=== PATIENT | male | born 1940 | race Hispanic/Latino ===

== ENCOUNTER 2018-07-24 07:23 | Day surgery (SDC) | payer MEDICARE ==
[2018-07-22 12:13] LABS: BASOPHILS % (AUTO) 0.5 % (0.0-5.0); EOSINOPHILS % (AUTO) 4.8 % (0.0-8.0); HEMATOCRIT 37.5 % (42-54); LYMPHOCYTES % (AUTO) 29.2 % (21.0-51.0); MEAN CORPUSCULAR HEMOGLOBIN 31.1 pg (27.0-33.0); MEAN CORPUSCULAR HGB CONC 32.9 g/dL (32.0-36.0); MEAN CORPUSCULAR VOLUME 94.5 fL (79-99); MONOCYTES % (AUTO) 8.6 % (3.0-13.0); NEUTROPHILS % (AUTO) 56.9 % (40.0-77.0); PLATELET COUNT (AUTO) 221 K/uL (130-400); RED BLOOD CELL COUNT(AUTO) 3.97 MIL/uL (4.50-6.20); RED CELL DISTRIBUTION WIDTH 14.4 % (11.0-15.5); WHITE BLOOD COUNT (AUTO) 8.9 K/uL (4.8-10.8)
[2018-07-22 12:17] LABS: APPEARANCE,URINE Clear (CLEAR); BILIRUBIN,URINE Negative (NEGATIVE); COLOR,URINE Yellow (YELLOW); GLUCOSE, URINE (UA) Negative (NEGATIVE); KETONES,URINE Negative (NEGATIVE); LEUKOCYTE ESTERASE ,URINE Moderate (NEGATIVE); NITRATE,URINE Negative (NEGATIVE); OCCULT BLOOD,URINE Negative (NEGATIVE); PROTEIN,URINE Negative (NEGATIVE)
[2018-07-22 12:18] LABS: CREATININE 1.4 mg/dL (0.5-1.5); POTASSIUM 3.6 mmol/L (3.5-5.1)
[2018-07-22 12:25] LABS: INR 1.03 (0.85-1.15); PARTIAL THROMBOPLASTIN TIME 26.1 SEC (26.3-35.5); PROTHROMBIN TIME 10.8 SEC (9.6-11.6)
[2018-07-22 12:37] VITALS: BP 140/57
[2018-07-22 12:43] LABS: BACTERIA,URINE Rare /HPF (None Seen); RBC,URINE 0-1 /HPF (0-1); SQUAMOUS EPITHELIAL CELL,UR Rare /HPF (0-2)
--- NOTE | 2018-07-23 10:51 | NUR ---
ABNORMAL LABS NOTIFIED DOROTHY PENG OF PT'S CREATININE 1.4, BUN 29, URINE LEUKEST MODERATE, NEGATIVE NITRATES. ORDERS TO GIVE NS AT 100 ML/HR UNTIL PT GOES TO PROCEDURE.
[~2018-07-24] VITALS: Ht 165.1 cm; Wt 76.4 kg
[2018-07-24] VITALS (10 sets, daily range): BP systolic 131–150; BP diastolic 54–65
[~2018-07-24 07:23] MED LIST: ASPI-555 PO; ATOR20TA PO; DOXA4TAB3 PO; FOLI0.8T41 PO; INSLAN SQ; INSU100I15 SQ; NIAC500T76 PO; SITA100T12 PO; SODI325T PO; SODIUM CHLORIDE 0.9% 1000ML 1,000 ML IV SCH; TELM80TA2 PO; VITAD400 PO; [UNRECOGNIZED DRUG - CODE] PO
[2018-07-24] MEDS ORDERED: NITROGLYCERIN 5 MG/ML 10 ML VIAL IV ONE (09:55)
[2018-07-24] MEDS ORDERED: IOHEXOL-350 50ML VIAL IV ONE (09:55)
[2018-07-24] MEDS ORDERED: IOHEXOL 350 MG/ML 100ML INFUS..BTL IV ONE (09:55)
[2018-07-24] MEDS ORDERED: SODIUM BICARB 50MEQ 50ML VIAL ONE (09:55)
[2018-07-24] MEDS ORDERED: LIDOCAINE HCL 2% 20ML ONE (09:56)
[2018-07-24] MEDS ORDERED: MIDAZOLAM HCL 1 MG/ML 2ML VIAL ONE (10:13)
[2018-07-24] MEDS ORDERED: MEPERIDINE-PF 25 MG/ML SYG ONE (10:13)
[2018-07-24] MEDS ORDERED: GABA-529 PO (10:23)
[2018-07-24] MEDS ORDERED: GLIP10TA19 PO (10:23)
[2018-07-24] MEDS ORDERED: SODIUM CHLORIDE 0.9% 1000ML 1,000 ML IV SCH (10:52)
--- NOTE | 2018-07-24 13:12 | NUR ---
discharged pt gave instructions to son/pt no concerns voiced. Appt with doctor Nassar was discussed.
[2018-07-27] MEDS ORDERED: FOLI0.8T22 PO (13:34)
[2018-07-27] MEDS ORDERED: FISH1CAP49 PO (13:34)
[2018-07-27] MEDS ORDERED: NIFE90TA4 PO (13:36)
[2018-07-27] MEDS ORDERED: ATEN1TAB4 PO (13:36)
[2018-07-27] MEDS ORDERED: [UNRECOGNIZED DRUG - OTHER] PO (13:36)
== END 2018-07-24 13:12 | disposition home or self-care (01) ==
LOC: DAH 07:23
PROVIDERS: ATTEND Internal Medicine Cardiovascular Disease
DX: I25.118 Atherosclerotic heart disease of native coronary artery with other forms of angina pectoris (principal); I82.90 Acute embolism and thrombosis of unspecified vein; I26.99 Other pulmonary embolism without acute cor pulmonale; Z79.01 Long term (current) use of anticoagulants; I21.3 ST elevation (STEMI) myocardial infarction of unspecified site; I10 Essential (primary) hypertension; E78.5 Hyperlipidemia, unspecified; Z86.73 Personal history of transient ischemic attack (TIA), and cerebral infarction without residual deficits; Z79.899 Other long term (current) drug therapy; Z79.4 Long term (current) use of insulin; Z79.84 Long term (current) use of oral hypoglycemic drugs
CPT/HCPCS: 36415; 71045; 80048; 81001; 82948 ×2; 85025; 85610; 85730; 93005; 93458; A4606; C1760; C1894; J1644; J2175; J2250; J3490 ×3; Q9965; Q9967 ×2; 99156; 99157

== ENCOUNTER → 2018-10-29 | Outpatient (CLI) | payer MEDICARE ==
[~2018-10-29] MED LIST changes: +ATEN1TAB4 PO; +FISH1CAP49 PO; +FOLI0.8T22 PO; -FOLI0.8T41 PO; +GABA-529 PO; +IOHEXOL-350 50ML VIAL IV ONE; -NIAC500T76 PO; +NIFE90TA4 PO; -SODIUM CHLORIDE 0.9% 1000ML 1,000 ML IV SCH; -[UNRECOGNIZED DRUG - CODE] PO; +[UNRECOGNIZED DRUG - OTHER] PO
== END | disposition home or self-care (01) ==
LOC: RAH 07:35
PROVIDERS: ATTEND Internal Medicine Cardiovascular Disease
DX: I65.23 Occlusion and stenosis of bilateral carotid arteries (principal); I70.90 Unspecified atherosclerosis
CPT/HCPCS: 70496; 70498; Q9967

== ENCOUNTER → 2018-12-07 | Outpatient (CLI) | payer MEDICARE ==
[~2018-12-07] MED LIST changes: -IOHEXOL-350 50ML VIAL IV ONE
== END | disposition home or self-care (01) ==
LOC: SHCH 08:45
PROVIDERS: ATTEND Internal Medicine Cardiovascular Disease
DX: I70.293 Other atherosclerosis of native arteries of extremities, bilateral legs (principal)
CPT/HCPCS: 93925

== ENCOUNTER 2018-12-28 05:44 | Day surgery (SDC) | payer MEDICARE ==
[2018-12-25 09:55] VITALS: BP 110/64
[2018-12-25 10:41] LABS: APPEARANCE,URINE CLEAR (CLEAR); BILIRUBIN,URINE NEGATIVE (NEGATIVE); COLOR,URINE YELLOW (YELLOW); GLUCOSE, URINE (UA) 100 mg/dL (NEGATIVE); KETONES,URINE NEGATIVE (NEGATIVE); LEUKOCYTE ESTERASE ,URINE MODERATE (NEGATIVE); NITRATE,URINE NEGATIVE (NEGATIVE); OCCULT BLOOD,URINE SMALL (NEGATIVE); PH,URINE 5.5 (5.0-8.0); PROTEIN,URINE TRACE mg/dL (NEGATIVE); UROBILINOGEN,URINE 0.2 mg/dL (0.2-1.0)
[2018-12-25 10:42] LABS: BASOPHILS % (AUTO) 0.8 % (0.0-5.0); EOSINOPHILS % (AUTO) 5.3 % (0.0-8.0); HEMATOCRIT 35.2 % (42-54); LYMPHOCYTES % (AUTO) 23.1 % (21.0-51.0); MEAN CORPUSCULAR HEMOGLOBIN 28.3 pg (27.0-33.0); MEAN CORPUSCULAR HGB CONC 32.7 g/dL (32.0-36.0); MEAN CORPUSCULAR VOLUME 86.6 fL (79-99); MONOCYTES % (AUTO) 6.5 % (3.0-13.0); NEUTROPHILS % (AUTO) 64.3 % (40.0-77.0); PLATELET COUNT (AUTO) 208 K/uL (130-400); RED BLOOD CELL COUNT(AUTO) 4.06 MIL/uL (4.50-6.20); RED CELL DISTRIBUTION WIDTH 19.7 % (11.0-15.5); WHITE BLOOD COUNT (AUTO) 8.2 K/uL (4.8-10.8)
[2018-12-25 10:48] LABS: CREATININE 1.3 mg/dL (0.5-1.5); POTASSIUM 4.1 mmol/L (3.5-5.1)
[2018-12-25 10:51] LABS: INR 1.04 (0.85-1.15); PARTIAL THROMBOPLASTIN TIME 28.5 SEC (26.3-35.5); PROTHROMBIN TIME 10.9 SEC (9.6-11.6)
[2018-12-25 10:57] LABS: BACTERIA,URINE Few /HPF (None Seen); RBC,URINE 0-1 /HPF (0-1); SQUAMOUS EPITHELIAL CELL,UR 0-2 /HPF (0-2)
--- NOTE | 2018-12-25 16:30 | NUR ---
LABS INFORMED DOROTHY BELTRE OF ABNORMAL BUN/CREA/UA. NO ORDERS RECEIVED. PROCEED WITH PLANNED PROCEDURE.
[2018-12-28] VITALS (9 sets, daily range): BP systolic 132–164; BP diastolic 51–80
[~2018-12-28] VITALS: Ht 167.6 cm; Wt 75.6 kg
[~2018-12-28 05:44] MED LIST changes: +APIX2.5T PO; -ATEN1TAB4 PO; -FISH1CAP49 PO; +FURO20TA4 PO; +MAGN400T25 PO; +METO-408 PO; -NIFE90TA4 PO; -SODI325T PO; -VITAD400 PO; -[UNRECOGNIZED DRUG - OTHER] PO
[2018-12-28] MEDS ORDERED: SODIUM CHLORIDE 0.9% 1000ML 1,000 ML IV ONE (07:38)
[2018-12-28] MEDS ORDERED: NITROGLYCERIN 5 MG/ML 10 ML VIAL IV ONE (08:25)
[2018-12-28] MEDS ORDERED: HEPARIN SODIUM 1000UNIT/ML 10ML VIAL ONE (08:25)
[2018-12-28] MEDS ORDERED: SODIUM BICARB 50MEQ 50ML VIAL ONE (08:25)
[2018-12-28] MEDS ORDERED: IODIXANOL 320 MG/ML 100 ML VIAL ONE (08:25)
[2018-12-28] MEDS ORDERED: LIDOCAINE HCL 2% 20ML ONE (08:26)
--- NOTE | 2018-12-28 08:35 | NUR ---
PROCEDURE PT TAKEN TO CATH FOR SCHEDULED PROCEDURE . FAMILY AT BEDSIDE
[2018-12-28] MEDS ORDERED: HYDRALAZINE HCL 20 MG/ML VIAL ONE (09:10)
[2018-12-28] MEDS ORDERED: SODIUM CHLORIDE 0.9% 1000ML 1,000 ML IV SCH (09:29)
[2018-12-28] MEDS ORDERED: GLUCAGON 1MG KIT 1 MG ML IM PRN (09:30)
[2018-12-28] MEDS ORDERED: DEXTROSE 50%-WATER 50 ML DISP.SYRIN IV PRN (09:30)
--- NOTE | 2018-12-28 09:57 | NUR ---
post received pt from manufacturing laborer, s/p carotid angiogram, right groin dressing dry and intact, see post cath assessment, pt awake and alert , denies any pain or discomforts. plan of care discuss with patient /son. instructed to keep bedrest for 4 hrs. pt /son verbalized understanding.
[2018-12-28] MEDS ORDERED: INSULIN HUMULIN R 100 UNIT/ML 3ML SQ SCH (11:30)
--- NOTE | 2018-12-28 13:40 | NUR ---
dc dc instructions given to pts son , instructed to resume eliquis on 12/29/18, instructed to f/u with dr. brandy sepulveda, piv removed site asymptomatic, catheter intact, dressing to right groin dry and intact. see post cath assessment.
--- NOTE | 2018-12-28 13:45 | NUR ---
dc pt discharged with son via wc, no distress noted. denied any pain or discomforts.
== END 2018-12-28 13:45 | disposition home or self-care (01) ==
LOC: DAH 05:44
PROVIDERS: ATTEND Internal Medicine Cardiovascular Disease
DX: I65.23 Occlusion and stenosis of bilateral carotid arteries (principal); I25.10 Atherosclerotic heart disease of native coronary artery without angina pectoris; I10 Essential (primary) hypertension; E78.00 Pure hypercholesterolemia, unspecified; E11.9 Type 2 diabetes mellitus without complications; Z86.73 Personal history of transient ischemic attack (TIA), and cerebral infarction without residual deficits; Z95.5 Presence of coronary angioplasty implant and graft; Z79.01 Long term (current) use of anticoagulants; Z79.82 Long term (current) use of aspirin; Z79.4 Long term (current) use of insulin; Z79.899 Other long term (current) drug therapy; Z83.3 Family history of diabetes mellitus; Z82.49 Family history of ischemic heart disease and other diseases of the circulatory system
CPT/HCPCS: 36223; 36225; 36415; 71045; 80048; 81001; 82948 ×2; 85025; 85610; 85730; 93005; A4606; C1760; C1894; J0360; J1644; J3490 ×3; J7030; Q9967

== ENCOUNTER → 2019-06-21 | Outpatient (CLI) | payer MEDICARE | END | disposition home or self-care (01) | LOC: SHCH 10:52 | PROVIDERS: ATTEND Internal Medicine Cardiovascular Disease | DX: I65.23 Occlusion and stenosis of bilateral carotid arteries (principal) | CPT/HCPCS: 93880 ==

== ENCOUNTER 2019-08-30 07:34 | Inpatient (IN) | payer MEDICARE ==
[~2019-08-30] VITALS: Ht 165.1 cm; Wt 76.0 kg
[2019-08-30] MEDS ORDERED: ASPIRIN 325 MG TABLET ONE (07:44)
[2019-08-30 07:50] LABS: BASOPHILS % (AUTO) 0.6 % (0.0-5.0); EOSINOPHILS % (AUTO) 3.1 % (0.0-8.0); HEMATOCRIT 30.6 % (42-54); LYMPHOCYTES % (AUTO) 22.1 % (21.0-51.0); MEAN CORPUSCULAR HEMOGLOBIN 29.1 pg (27.0-33.0); MEAN CORPUSCULAR VOLUME 90.8 fL (79-99); MONOCYTES % (AUTO) 7.3 % (3.0-13.0); NEUTROPHILS % (AUTO) 66.5 % (40.0-77.0); PLATELET COUNT (AUTO) 197 K/uL (130-400); RED BLOOD CELL COUNT(AUTO) 3.37 MIL/uL (4.50-6.20); RED CELL DISTRIBUTION WIDTH 14.8 % (11.0-15.5); WHITE BLOOD COUNT (AUTO) 9.8 K/uL (4.8-10.8)
[2019-08-30 08:03] LABS: CREATININE 1.6 mg/dL (0.5-1.5)
[2019-08-30 08:07] LABS: ALBUMIN 3.2 g/dL (3.5-5.0); BILIRUBIN,TOTAL 0.7 mg/dL (0.2-1.0); TOTAL PROTEIN, SERUM 7.5 g/dL (6.0-8.3)
[2019-08-30 08:26] LABS: INR 1.2 (0.85-1.15); PARTIAL THROMBOPLASTIN TIME 29.7 SEC (26.3-35.5); PROTHROMBIN TIME 12.9 SEC (9.6-11.6)
[2019-08-30 08:29] LABS: B-TYPE NATRIURETIC PEPTIDE 723 pg/mL (0-100)
[2019-08-30] MEDS ORDERED: CEFTRIAXONE SODIUM 2 GM VIAL ONE (09:57)
[2019-08-30] MEDS ORDERED: SODIUM CHLORIDE 0.9% 100 ML IV ONE (09:57)
[2019-08-30] MEDS ORDERED: FUROSEMIDE 10 MG/ML 4ML VIAL ONE (10:01)
[2019-08-30 10:57] LABS: ABG BASE EXCESS -3.5 mmol/L (-2.0-3.0); ABG HCO3 20.9 mmol/L (21.0-28.0); ABG OXYGEN SATURATION 89.7 % (95.0-99.0); ABG PCO2 36 mmHg (35-48)
[2019-08-30] MEDS ORDERED: ONDANSETRON HCL 4 MG/2 ML VIAL IV PRN (13:15)
[2019-08-30] MEDS ORDERED: ACETAMINOPHEN 325 MG TAB PO PRN ×2 (13:15)
[2019-08-30 14:54] LABS: HEMOGLOBIN A1C 9.1 % (4.0-6.0)
[2019-08-30] MEDS ORDERED: METOPROLOL TARTRATE 25 MG TAB ONE (20:43)
[2019-08-30] MEDS ORDERED: APIXABAN 2.5 MG TABLET PO ONE (20:43)
[2019-08-30] MEDS: METOPROLOL TARTRATE 25 MG TAB PO SCH (21:00)
[2019-08-30] MEDS ORDERED: SODIUM CHLORIDE 3% FOR INHALATION 4 ML/AMP VIAL.NEB IH ONE (22:01)
[2019-08-30] MEDS: APIXABAN 2.5 MG TABLET PO SCH (22:20)
[2019-08-30 22:22] VITALS: BP 164/77
[2019-08-30] MEDS: FUROSEMIDE 10 MG/ML 2ML VIAL IV SCH (22:33)
[2019-08-30 23:25] VITALS: BP 146/59
[2019-08-31 03:39] VITALS: BP 153/61
[2019-08-31 04:31] LABS: BASOPHILS % (AUTO) 0.7 % (0.0-5.0); EOSINOPHILS % (AUTO) 3.1 % (0.0-8.0); HEMATOCRIT 29.3 % (42-54); LYMPHOCYTES % (AUTO) 16.5 % (21.0-51.0); MEAN CORPUSCULAR HGB CONC 32.8 g/dL (32.0-36.0); MEAN CORPUSCULAR VOLUME 88.5 fL (79-99); MONOCYTES % (AUTO) 8.1 % (3.0-13.0); NEUTROPHILS % (AUTO) 71.2 % (40.0-77.0); PLATELET COUNT (AUTO) 213 K/uL (130-400); RED BLOOD CELL COUNT(AUTO) 3.31 MIL/uL (4.50-6.20); RED CELL DISTRIBUTION WIDTH 14.6 % (11.0-15.5); WHITE BLOOD COUNT (AUTO) 9.8 K/uL (4.8-10.8)
[2019-08-31 04:38] LABS: ALBUMIN 3.1 g/dL (3.5-5.0); BILIRUBIN,TOTAL 0.8 mg/dL (0.2-1.0); CREATININE 1.7 mg/dL (0.5-1.5); POTASSIUM 3.8 mmol/L (3.5-5.1); TOTAL PROTEIN, SERUM 7.3 g/dL (6.0-8.3)
[2019-08-31 04:47] LABS: B-TYPE NATRIURETIC PEPTIDE 913 pg/mL (0-100)
[2019-08-31 08:20] VITALS: BP 109/60
[2019-08-31] MEDS: APIXABAN 2.5 MG TABLET PO SCH ×2 (11:25→20:22)
[2019-08-31] MEDS: LISINOPRIL 5 MG TABLET PO SCH (11:26)
[2019-08-31] MEDS: FUROSEMIDE 10 MG/ML 2ML VIAL IV SCH ×2 (11:26→20:24)
[2019-08-31] MEDS: ASPIRIN 81MG TAB.CHEW PO SCH (11:26)
[2019-08-31] MEDS: METOPROLOL TARTRATE 25 MG TAB PO SCH ×2 (11:26→20:22)
[2019-08-31 11:51] VITALS: BP 156/66
[2019-08-31] MEDS ORDERED: DEXTROSE 50%-WATER 50 ML DISP.SYRIN IV PRN (12:30)
[2019-08-31] MEDS ORDERED: GLUCAGON 1MG KIT 1 MG ML IM PRN (12:30)
[2019-08-31] MEDS: INSULIN HUMULIN R 100 UNIT/ML 3ML SQ SCH ×3 (12:58→21:00)
[2019-08-31 16:28] VITALS: BP 153/60
--- NOTE | 2019-08-31 16:42 | NUR ---
INITIAL Patient lives with spouse. Emergency contact is his daughter, Darby Hsu, [phone]. No home services. DME: [employer], glucometer (uses insulin). Patient reports that he is able to complete ADL's independently and drives. PCP is Dr. Isaac Clarke. Pharmacy is [facility] located on [address] [place] [address]. DCP is home. Addendum: 08/31/19 at 1645 by BRIGITTE BUSTILLOS SS Amended: Links added.
[2019-08-31 18:58] VITALS: BP 150/73
[2019-08-31 23:32] VITALS: BP 138/46
[2019-09-01 03:33] VITALS: BP 150/64
[2019-09-01 04:07] LABS: BASOPHILS % (AUTO) 0.3 % (0.0-5.0); EOSINOPHILS % (AUTO) 3.8 % (0.0-8.0); HEMATOCRIT 28.2 % (42-54); LYMPHOCYTES % (AUTO) 22.1 % (21.0-51.0); MEAN CORPUSCULAR HEMOGLOBIN 29.2 pg (27.0-33.0); MEAN CORPUSCULAR VOLUME 88.7 fL (79-99); MONOCYTES % (AUTO) 9.4 % (3.0-13.0); NEUTROPHILS % (AUTO) 64.1 % (40.0-77.0); PLATELET COUNT (AUTO) 211 K/uL (130-400); RED BLOOD CELL COUNT(AUTO) 3.18 MIL/uL (4.50-6.20); RED CELL DISTRIBUTION WIDTH 14.5 % (11.0-15.5); WHITE BLOOD COUNT (AUTO) 9.2 K/uL (4.8-10.8)
[2019-09-01 04:31] LABS: BILIRUBIN,TOTAL 0.7 mg/dL (0.2-1.0); CREATININE 1.5 mg/dL (0.5-1.5); POTASSIUM 3.2 mmol/L (3.5-5.1)
[2019-09-01] MEDS: INSULIN HUMULIN R 100 UNIT/ML 3ML SQ SCH ×2 (06:43→12:14)
[2019-09-01] MEDS ORDERED: INSULIN GLARGINE 100 UNITS/ML 10 ML VIAL SQ SCH (07:30)
--- NOTE | 2019-09-01 08:00 | NUR ---
PT IS ASSESSED AND WAS SEEN BY DR. SHOOK AND IS GOING TO BE DISCHARGED TODAY. SON AT BEDSIDE AND WAS ADVISED. WAITING FOR HOSPITALIST TO DO THE DISCHARGE ORDERS.
[2019-09-01 08:28] VITALS: BP 138/56
[2019-09-01] MEDS: LISINOPRIL 5 MG TABLET PO SCH (08:31)
[2019-09-01] MEDS: METOPROLOL TARTRATE 25 MG TAB PO SCH (08:31)
[2019-09-01] MEDS: ASPIRIN 81MG TAB.CHEW PO SCH (08:31)
[2019-09-01] MEDS: APIXABAN 2.5 MG TABLET PO SCH (08:32)
[2019-09-01] MEDS ORDERED: FUROSEMIDE 20 MG TABLET PO SCH (09:00)
[2019-09-01] MEDS ORDERED: METOPROLOL SUCCINATE 12.5 MG PO SCH (09:00)
[2019-09-01 11:40] VITALS: BP 151/61
--- NOTE | 2019-09-01 14:50 | NUR ---
PT WAS DISCHARGED AFTER GIVING DETAILED INSTRUCTIONS AND SIGNS TO LOOK FOR WHEN HE IS GETTING SHORT OF BREATH. PT AND DAUGHTER VERBALIZED UNDERSTANDING.
[2019-09-01] MEDS ORDERED: ASPIRIN 81 MG EC TAB PO SCH (21:00)
[2019-09-01] MEDS ORDERED: ATORVASTATIN CALCIUM 20 MG TABLET PO SCH (21:00)
== END 2019-09-01 14:58 | disposition home or self-care (01) | DRG 291 ==
LOC: EDH 07:34 → EDHIP 13:13 → 2AH 22:04
PROVIDERS: ADMIT Hospitalist; ATTEND Hospitalist
DX: I13.0 Hypertensive heart and chronic kidney disease with heart failure and stage 1 through stage 4 chronic kidney disease, or unspecified chronic kidney disease (principal); J96.01 Acute respiratory failure with hypoxia; J18.9 Pneumonia, unspecified organism; I50.31 Acute diastolic (congestive) heart failure; J98.11 Atelectasis; E11.22 Type 2 diabetes mellitus with diabetic chronic kidney disease; I25.5 Ischemic cardiomyopathy; E11.51 Type 2 diabetes mellitus with diabetic peripheral angiopathy without gangrene; I48.0 Paroxysmal atrial fibrillation; I65.23 Occlusion and stenosis of bilateral carotid arteries; N18.3 Chronic kidney disease, stage 3 (moderate); I25.10 Atherosclerotic heart disease of native coronary artery without angina pectoris; I25.2 Old myocardial infarction; Z79.01 Long term (current) use of anticoagulants; Z79.82 Long term (current) use of aspirin; Z86.73 Personal history of transient ischemic attack (TIA), and cerebral infarction without residual deficits; Z95.1 Presence of aortocoronary bypass graft
CPT/HCPCS: 36415; 36600; 71045; 71250; 80053; 82435; 82550; 82803; 82947; 82948; 83036; 83605; 83880; 84132; 84295; 84484; 85018; 85025; 85610; 85730; 87040; 87071; 87205; 87486; 87581; 87633; 87798; 87804; 93005; 94640; 94660; 99291; G0378; J0696; J1815; J1940

== ENCOUNTER → 2019-10-11 | Outpatient (CLI) | payer MEDICARE | END | disposition home or self-care (01) | LOC: SHCH 08:10 | PROVIDERS: ATTEND Internal Medicine Cardiovascular Disease | DX: I10 Essential (primary) hypertension (principal) | CPT/HCPCS: 93306; 93975 ==

== ENCOUNTER 2019-11-19 06:35 | Day surgery (SDC) | payer MEDICARE ==
[2019-11-17 09:49] LABS: BASOPHILS % (AUTO) 0.7 % (0.0-5.0); EOSINOPHILS % (AUTO) 4.7 % (0.0-8.0); HEMATOCRIT 36.6 % (42-54); LYMPHOCYTES % (AUTO) 26.6 % (21.0-51.0); MEAN CORPUSCULAR HEMOGLOBIN 29.6 pg (27.0-33.0); MEAN CORPUSCULAR HGB CONC 32.5 g/dL (32.0-36.0); MONOCYTES % (AUTO) 6.7 % (3.0-13.0); PLATELET COUNT (AUTO) 237 K/uL (130-400); RED BLOOD CELL COUNT(AUTO) 4.02 MIL/uL (4.50-6.20); RED CELL DISTRIBUTION WIDTH 14.7 % (11.0-15.5); WHITE BLOOD COUNT (AUTO) 10.1 K/uL (4.8-10.8)
[2019-11-17 09:59] LABS: APPEARANCE,URINE Clear (CLEAR); BILIRUBIN,URINE Negative (NEGATIVE); COLOR,URINE Yellow (YELLOW); GLUCOSE, URINE (UA) Negative (NEGATIVE); KETONES,URINE Negative (NEGATIVE); LEUKOCYTE ESTERASE ,URINE Moderate (NEGATIVE); NITRATE,URINE Negative (NEGATIVE); OCCULT BLOOD,URINE Trace (NEGATIVE); PROTEIN,URINE Trace mg/dL (NEGATIVE); UROBILINOGEN,URINE 0.2 mg/dL (0.2-1.0)
[2019-11-17 10:02] LABS: CREATININE 1.8 mg/dL (0.5-1.5); POTASSIUM 4.4 mmol/L (3.5-5.1)
[2019-11-17 10:04] LABS: BACTERIA,URINE Rare /HPF (None Seen); RBC,URINE 0-1 /HPF (0-1); SQUAMOUS EPITHELIAL CELL,UR Rare /HPF (0-2)
[2019-11-17 10:06] LABS: INR 1.05 (0.85-1.15); PARTIAL THROMBOPLASTIN TIME 27.4 SEC (26.3-35.5); PROTHROMBIN TIME 11.3 SEC (9.6-11.6)
[2019-11-18 13:46] VITALS: BP 176/78
--- NOTE | 2019-11-18 14:00 | NUR ---
re: ABNORMAL LABS REPORTED BUN 32, CREAT 1.8 TO DOROTHY PENG. RECEIVED ORDERS FOR REPEAT BMP IN AM AND IV HYDRATION OF NS AT 100ML/HOUR UPON ARRIVAL TO DAY PATIENT. Addendum: 11/18/19 at 1507 by DANIEL HARRELL RN RN ALSO REPORTED ABNORMAL UA, NO NEW ORDERS RECEIVED
[~2019-11-19] VITALS: Ht 165.1 cm; Wt 75.7 kg
[2019-11-19] VITALS (10 sets, daily range): BP systolic 143–198; BP diastolic 49–70
[~2019-11-19 06:35] MED LIST changes: +ACETAMINOPHEN 325 MG TAB PO PRN; +AMLO-257 PO; -ASPI-555 PO; +ASPI-556 PO; -DOXA4TAB3 PO; +DOXA8TAB81 PO; -METO-408 PO; +METO50TA18 PO; +SODIUM CHLORIDE 0.9% 500ML 500 ML IV SCH
[2019-11-19 07:20] LABS: CREATININE 1.6 mg/dL (0.5-1.5); POTASSIUM 4.1 mmol/L (3.5-5.1)
[2019-11-19] MEDS ORDERED: AMLODIPINE BESYLATE 5 MG TAB ONE (07:54)
[2019-11-19] MEDS ORDERED: METOPROLOL TARTRATE 25 MG TAB ONE ×2 (07:54→08:00)
[2019-11-19] MEDS ORDERED: FUROSEMIDE 20 MG TABLET PO SCH (08:15)
[2019-11-19] MEDS ORDERED: PHARMACY COMMUNICATION MISC SCH (08:15)
[2019-11-19] MEDS ORDERED: AMLODIPINE BESYLATE 5 MG TAB PO SCH (08:15)
[2019-11-19] MEDS ORDERED: METOPROLOL TARTRATE 25 MG TAB PO SCH (08:15)
[2019-11-19] MEDS ORDERED: METO50TA18 PO (08:20)
[2019-11-19] MEDS ORDERED: LOSARTAN 100 MG TABLET PO SCH (08:30)
[2019-11-19] MEDS ORDERED: SODIUM CHLORIDE 0.9% 1000ML 1,000 ML IV ONE (08:31)
[2019-11-19] MEDS ORDERED: NITROGLYCERIN 2 MG/VIAL VIAL IV ONE (12:15)
[2019-11-19] MEDS ORDERED: LIDOCAINE HCL 2% 20ML ONE (12:15)
[2019-11-19] MEDS ORDERED: MEPERIDINE-PF 25 MG/ML SYG ONE (12:15)
[2019-11-19] MEDS ORDERED: HEPARIN SODIUM 1000UNIT/ML 10ML VIAL ONE (12:15)
[2019-11-19] MEDS ORDERED: MIDAZOLAM HCL 1 MG/ML 2ML VIAL ONE (12:15)
[2019-11-19] MEDS ORDERED: SODIUM BICARB 50MEQ 50ML VIAL ONE (12:15)
[2019-11-19] MEDS ORDERED: IODIXANOL 320 MG/ML 100 ML VIAL ONE (12:18)
[2019-11-19] MEDS ORDERED: SODIUM CHLORIDE 0.9% 1000ML 1,000 ML IV SCH (13:18)
[2019-11-19] MEDS ORDERED: DEXTROSE 50%-WATER 50 ML DISP.SYRIN IV PRN (13:30)
[2019-11-19] MEDS ORDERED: GLUCAGON 1MG KIT 1 MG ML IM PRN (13:30)
[2019-11-19] MEDS ORDERED: HYDRALAZINE HCL 20 MG/ML VIAL IV PRN (13:30)
[2019-11-19] MEDS ORDERED: INSULIN HUMULIN R 100 UNIT/ML 3ML SQ SCH (16:30)
== END 2019-11-19 17:25 | disposition home or self-care (01) ==
LOC: DAH 06:35
PROVIDERS: ATTEND Internal Medicine Cardiovascular Disease
DX: Q27.1 Congenital renal artery stenosis (principal); I10 Essential (primary) hypertension; E78.5 Hyperlipidemia, unspecified; I25.10 Atherosclerotic heart disease of native coronary artery without angina pectoris; I48.0 Paroxysmal atrial fibrillation; Z79.899 Other long term (current) drug therapy
CPT/HCPCS: 36252; 36415 ×2; 37236; 37237; 71045; 80048 ×2; 81001; 82948 ×2; 85025; 85610; 85730; 87077; 87088; 87186; 93005; A4215; A4216; A4221; A4222; A4223 ×3; A4606; A4663; C1725; C1760; C1769; C1876 ×2; C1887; C1894; J1644 ×2; J2175; J2250; J3490 ×3; J7030; Q9967; 99156; 99157

== ENCOUNTER → 2020-05-18 | Outpatient (CLI) | payer MEDICARE ==
[~2020-05-18] MED LIST changes: -ACETAMINOPHEN 325 MG TAB PO PRN; -SODIUM CHLORIDE 0.9% 500ML 500 ML IV SCH
== END | disposition home or self-care (01) ==
LOC: SHCH 09:46
PROVIDERS: ATTEND Internal Medicine Cardiovascular Disease
DX: I65.23 Occlusion and stenosis of bilateral carotid arteries (principal)
CPT/HCPCS: 93880

== ENCOUNTER → 2020-08-28 | Outpatient (CLI) | payer MEDICARE | END | disposition home or self-care (01) | LOC: RAH 09:39 | PROVIDERS: ATTEND Internal Medicine Cardiovascular Disease | DX: N28.1 Cyst of kidney, acquired (principal); I10 Essential (primary) hypertension | CPT/HCPCS: 93975 ==

== ENCOUNTER → 2020-09-08 | Outpatient (CLI) | payer MEDICARE | END | disposition home or self-care (01) | LOC: RAH 14:46 | PROVIDERS: ATTEND Internal Medicine Cardiovascular Disease | DX: R60.9 Edema, unspecified (principal) | CPT/HCPCS: 93970 ==

== ENCOUNTER 2020-09-18 09:06 | Observation (INO) | payer MEDICARE ==
[2020-09-14 14:50] LABS: BASOPHILS % (AUTO) 0.9 % (0.0-5.0); EOSINOPHILS % (AUTO) 4.7 % (0.0-8.0); HEMATOCRIT 31.1 % (42-54); MEAN CORPUSCULAR HGB CONC 32.8 g/dL (32.0-36.0); MEAN CORPUSCULAR VOLUME 88.4 fL (79-99); MONOCYTES % (AUTO) 7.5 % (3.0-13.0); NEUTROPHILS % (AUTO) 65.7 % (40.0-77.0); PLATELET COUNT (AUTO) 226 K/uL (130-400); RED BLOOD CELL COUNT(AUTO) 3.52 MIL/uL (4.50-6.20); RED CELL DISTRIBUTION WIDTH 14.5 % (11.0-15.5)
[2020-09-14 14:51] LABS: APPEARANCE,URINE Clear (CLEAR); BILIRUBIN,URINE Negative (NEGATIVE); COLOR,URINE Yellow (YELLOW); GLUCOSE, URINE (UA) TRACE mg/dL (NEGATIVE); KETONES,URINE Negative (NEGATIVE); LEUKOCYTE ESTERASE ,URINE Small (NEGATIVE); NITRATE,URINE Negative (NEGATIVE); OCCULT BLOOD,URINE Small (NEGATIVE); PH,URINE 5.5 (5.0-8.0); PROTEIN,URINE 300 mg/dL (NEGATIVE); UROBILINOGEN,URINE 0.2 mg/dL (0.2-1.0)
[2020-09-14 14:57] LABS: BACTERIA,URINE Few /HPF (None Seen)
[2020-09-14 14:58] LABS: SQUAMOUS EPITHELIAL CELL,UR Rare /HPF (0-2); TRANSITIONAL EPI CELLS,URINE Rare /HPF (None Seen)
[2020-09-14 14:59] LABS: MUCUS,URINE Few LPF (None Seen)
[2020-09-14 15:00] LABS: HYALINE CASTS, URINE 0-1 /LPF (0-1 /LPF)
[2020-09-14 15:04] LABS: CREATININE 3.3 mg/dL (0.5-1.5); INR 1.17 (0.85-1.15); POTASSIUM 4.3 mmol/L (3.5-5.1); PROTHROMBIN TIME 12.6 SEC (9.6-11.6)
[2020-09-14 15:05] LABS: PARTIAL THROMBOPLASTIN TIME 27.5 SEC (26.3-35.5)
[~2020-09-18] VITALS: Ht 167.6 cm; Wt 81.6 kg
[2020-09-18] VITALS (9 sets, daily range): BP systolic 137–169; BP diastolic 48–169
[~2020-09-18 09:06] MED LIST changes: +0.9% NACL 500ML IV.SOLN 500 ML IV SCH; -AMLO-257 PO; -ATOR20TA PO; -FOLI0.8T22 PO; -GABA-529 PO; +GABA100C PO; +HYDR-4154 PO; +INSU100C14 SQ; -INSU100I15 SQ; -METO50TA18 PO; +SITA50TA PO; -TELM80TA2 PO
[2020-09-18] MEDS ORDERED: ATOR40TA69 PO (09:44)
[2020-09-18] MEDS ORDERED: LIDOCAINE HCL 400MG/20ML VIAL ONE (15:39)
[2020-09-18] MEDS ORDERED: NITROGLYCERIN 2 MG VIAL IV ONE (15:39)
[2020-09-18] MEDS ORDERED: HEPARIN 10,000 UNIT/10ML (1,000 UNIT/ML) VIAL ONE (15:39)
[2020-09-18] MEDS ORDERED: SODIUM BICARB 50MEQ 50ML VIAL 50 ML ONE (15:39)
[2020-09-18] MEDS ORDERED: IODIXANOL 320 MG/ML 100 ML VIAL ONE (15:39)
[2020-09-18] MEDS ORDERED: MEPERIDINE-PF 25 MG/ML SYG ONE (15:46)
[2020-09-18] MEDS ORDERED: MIDAZOLAM HCL 1 MG/ML 2ML VIAL ONE (15:46)
[2020-09-18] MEDS ORDERED: HYDRALAZINE 20MG/ML VIAL ONE (15:56)
[2020-09-18] MEDS ORDERED: CLOPIDOGREL 300MG TAB ONE (16:24)
[2020-09-18] MEDS ORDERED: GLUCAGON 1MG KIT 1 MG ML IM PRN (16:30)
[2020-09-18] MEDS ORDERED: DEXTROSE 50%-WATER 50 ML DISP.SYRIN IV PRN (16:30)
[2020-09-18] MEDS ORDERED: 0.9%NACL 1000ML 1,000 ML IV SCH (16:30)
[2020-09-18] MEDS: INSULIN HUMULIN R 100 UNIT/ML 3ML SQ SCH ×2 (16:30→21:23)
[2020-09-18] MEDS ORDERED: ASPIRIN 81 MG EC TAB PO SCH (21:00)
[2020-09-18] MEDS ORDERED: INSULIN GLARGINE 100 UNITS/ML 10 ML VIAL SQ SCH ×2 (21:00)
[2020-09-18] MEDS ORDERED: ATORVASTATIN 40 MG TABLET PO SCH (21:00)
[2020-09-18] MEDS ORDERED: DOXAZOSIN MESYLATE 2 MG TABLET PO SCH (21:00)
[2020-09-18] MEDS: GABAPENTIN 100 MG CAPSULE PO SCH (22:29)
[2020-09-18] MEDS: HYDRALAZINE 25MG TABLET PO SCH (22:29)
[2020-09-19 04:32] VITALS: BP 169/55
[2020-09-19 05:01] LABS: MEAN CORPUSCULAR HEMOGLOBIN 28.1 pg (27.0-33.0); MEAN CORPUSCULAR HGB CONC 32.1 g/dL (32.0-36.0); MEAN CORPUSCULAR VOLUME 87.5 fL (79-99); RED BLOOD CELL COUNT(AUTO) 3.2 MIL/uL (4.50-6.20); RED CELL DISTRIBUTION WIDTH 14.7 % (11.0-15.5); WHITE BLOOD COUNT (AUTO) 7.9 K/uL (4.8-10.8)
[2020-09-19 05:07] LABS: CREATININE 3.2 mg/dL (0.5-1.5); POTASSIUM 3.4 mmol/L (3.5-5.1)
[2020-09-19] MEDS: INSULIN HUMULIN R 100 UNIT/ML 3ML SQ SCH (06:37)
[2020-09-19] MEDS: GABAPENTIN 100 MG CAPSULE PO SCH (07:54)
[2020-09-19] MEDS: HYDRALAZINE 25MG TABLET PO SCH (07:54)
[2020-09-19 08:54] VITALS: BP 164/59
[2020-09-19] MEDS ORDERED: INSULIN LISPRO 100 UNIT/ML 3ML SQ SCH (09:00)
[2020-09-19] MEDS ORDERED: FUROSEMIDE 20 MG TABLET PO SCH (09:00)
[2020-09-19] MEDS ORDERED: MAGNESIUM OXIDE 400 MG TABLET PO SCH (09:00)
[2020-09-19] MEDS ORDERED: APIXABAN 2.5 MG TABLET PO SCH (09:00)
[2020-09-19] MEDS ORDERED: LINAGLIPTIN 5 MG TABLET PO SCH (09:00)
[2020-09-19 12:21] VITALS: BP 172/48
== END 2020-09-19 13:20 | disposition home or self-care (01) ==
LOC: DAH 09:06 → OBSVTOIN 09:07 → DAHIP 09:07 → DAH 09:07 → INTOOBSV 09:07 → 4CH 16:54
PROVIDERS: ADMIT Internal Medicine; ATTEND Internal Medicine
DX: I70.1 Atherosclerosis of renal artery (principal); I12.9 Hypertensive chronic kidney disease with stage 1 through stage 4 chronic kidney disease, or unspecified chronic kidney disease; E11.22 Type 2 diabetes mellitus with diabetic chronic kidney disease; N18.30 Chronic kidney disease, stage 3 unspecified; I25.10 Atherosclerotic heart disease of native coronary artery without angina pectoris; I48.0 Paroxysmal atrial fibrillation; E78.5 Hyperlipidemia, unspecified; Z86.73 Personal history of transient ischemic attack (TIA), and cerebral infarction without residual deficits; Z95.1 Presence of aortocoronary bypass graft; Z79.4 Long term (current) use of insulin; Z79.82 Long term (current) use of aspirin; Z79.01 Long term (current) use of anticoagulants; Z79.899 Other long term (current) drug therapy
CPT/HCPCS: 36252; 36415 ×2; 37236; 71045; 80048 ×2; 81001; 82948 ×4; 85025; 85027; 85610; 85730; 87088; 93005; 96360; 96361 ×2; C1725; C1760; C1769; C1876; C1887; C1894; G0378 ×20; J0360; J1644 ×2; J1815; J2175; J2250; J3490 ×3; J7040; Q9967; 99156; 99157

== ENCOUNTER → 2022-08-15 | Outpatient (CLI) | payer MEDICARE ==
[~2022-08-15] MED LIST changes: -0.9% NACL 500ML IV.SOLN 500 ML IV SCH; +ATOR40TA69 PO; -SITA100T12 PO
== END | disposition home or self-care (01) ==
LOC: SHCH 11:15
PROVIDERS: ATTEND Internal Medicine Cardiovascular Disease
DX: I65.23 Occlusion and stenosis of bilateral carotid arteries (principal)
CPT/HCPCS: 93880

== ENCOUNTER 2023-06-17 14:41 | Emergency (ER) | payer MEDICARE ==
[~2023-06-17] VITALS: Ht 165.1 cm; Wt 54.4 kg
[2023-06-17 21:46] LABS: BASOPHILS # (AUTO) 0.03 K/uL (0.00-0.20); BASOPHILS % (AUTO) 0.3 % (0.0-5.0); EOSINOPHILS # (AUTO) 0.01 K/uL (0.00-0.70); EOSINOPHILS % (AUTO) 0.1 % (0.0-8.0); HEMATOCRIT 35.9 % (42-54); IMMATURE GRANULOCYTE ABSOLUTE 0.03 K/uL (0-1); LYMPHOCYTES % (AUTO) 8.8 % (21.0-51.0); MEAN CORPUSCULAR HEMOGLOBIN 34.6 pg (27.0-33.0); MEAN CORPUSCULAR HGB CONC 33.7 g/dL (32.0-36.0); MEAN CORPUSCULAR VOLUME 102.6 fL (79-99); MONOCYTES # (AUTO) 1.4 K/uL (0.1-1.0); MONOCYTES % (AUTO) 12.2 % (3.0-13.0); NEUTROPHILS # (AUTO) 8.7 K/uL (1.8-7.7); NEUTROPHILS % (AUTO) 78.3 % (40.0-77.0); PLATELET COUNT (AUTO) 175 K/uL (130-400); RED CELL DISTRIBUTION WIDTH 13.5 % (11.0-15.5); WHITE BLOOD COUNT (AUTO) 11.1 K/uL (4.8-10.8)
[2023-06-17 22:03] LABS: CREATININE 7.4 mg/dL (0.5-1.5); POTASSIUM 4.3 mmol/L (3.5-5.1)
[2023-06-17 22:08] LABS: ALBUMIN 3.3 g/dL (3.5-5.0); BILIRUBIN,TOTAL 0.5 mg/dL (0.2-1.0); TOTAL PROTEIN, SERUM 8.4 g/dL (6.0-8.3)
[2023-06-17 22:41] LABS: WBC MORPHOLOGY CONSISTENT W/DIFF
[2023-06-17 23:30] VITALS: BP 105/61; PULSE 84; RESP 16; O2SAT 97
== END 2023-06-17 23:33 | disposition home or self-care (01) ==
LOC: EDH 14:41
DX: U07.1 COVID-19 (principal); R05.9 Cough, unspecified; E78.00 Pure hypercholesterolemia, unspecified; I10 Essential (primary) hypertension; I25.2 Old myocardial infarction; Z99.2 Dependence on renal dialysis
CPT/HCPCS: 36415; 71045; 80053; 85025

== ENCOUNTER → 2024-08-03 | Outpatient (CLI) | payer MEDICARE ==
[~2024-08-03] MED LIST changes: +AMLO2.5T4 PO; -ASPI-556 PO; +CINA30TA5 PO; +CLOP-31 PO; -DOXA8TAB81 PO; +FOLI0.8T53 PO; -FURO20TA4 PO; -GABA100C PO; -HYDR-4154 PO; -INSU100C14 SQ; +INSU100I29 SQ; +ISOS60TA77 PO; +LINA5TAB PO; +METO25 PO; +NIFE-78 PO; +NITR0.4T SL; +PANT40TA54 PO; +RANO500T6 PO; +SEVE800T27 PO; -SITA50TA PO; +VADA150T PO
--- NOTE | 2024-08-03 13:50 | NUR ---
MBSS COMPLETED (OUTPATIENT). Deep non-transient penetrations with mixed textures, thin and nectar thick liquids. Recommend regular solids (NO MIXED TEXTURES), honey thick liquids and pills whole with pudding or crushed as tolerated. Compensatory strategies: 1. sit upright during oral intake 2. small bites/sips 3. slow oral intake 4. extra dry swallows 5. NO MIXED TEXTURES 6. NO STRAWS BOTTLED BEVERAGE INSPECTOR reviewed results and recommendations with patient and son present at time of visit. BOTTLED BEVERAGE INSPECTOR educated patient/family on risks and consequences of aspiration. BOTTLED BEVERAGE INSPECTOR provided patient with a can of thickener and demonstrated how to reach thicken liquids. Speech therapy recommended as outpatient to address dysphagia. All questions answered. Addendum: 08/03/[address] TK MINOR Amended: Links added.
--- NOTE | 2024-08-03 15:42 | HMCIMG ---
MODIFIED BARIUM SWALLOW W CINE REASON: Dysphagia, oropharyngeal phase FINDINGS: Fluoroscopic assistance was provided to the speech pathologist while performing examination. For findings and dietary recommendations, refer to speech pathologist's report. FLUORO TIME: 3.8 minutes IMPRESSION: Modified barium swallow as described.
== END | disposition home or self-care (01) ==
LOC: RAH 13:09
PROVIDERS: ATTEND Internal Medicine
DX: R13.12 Dysphagia, oropharyngeal phase (principal); K21.9 Gastro-esophageal reflux disease without esophagitis; R13.19 Other dysphagia
CPT/HCPCS: 74230; 92611

== ENCOUNTER → 2024-09-14 | Outpatient (CLI) | payer MEDICARE ==
[~2024-09-14] MED LIST changes: +CEPH500C2 PO; -CINA30TA5 PO; +CLIN-141 PO; +IPRA0.2S54 NEB; -NIFE-78 PO; -SEVE800T27 PO
--- NOTE | 2024-09-15 08:02 | HMCSR ---
APPROVED REPORT EXAM: Two-dimensional and M-mode echocardiogram with Doppler and color Doppler. INDICATION ICD: R06.00 Dyspnea 2D Dimensions RVDd4.6 cmLVEF(%)45.8 (>50%)LVED Vol(simp.)135.0 mL IVSd0.9 (0.7-1.1cm)FS(%)23 %LVES Vol(simp.)79.0 mL LVDd4.7 (3.8-5.6cm)Ao Root(2D)3.1 (2.0-3.7cm)LVEF(%, simp.)42 % PWd1.0 (0.7-1.1cm)LVOT diam2.2 (1.8-2.4cm)LA ESV INDEX (BP)42.26 mL/m2 LVDs3.6 (2.5-4.0cm)IVC diam2.0 cm Aortic Valve AoV Vmax1.0 m/Sasha Peak GR3.7 mmHgLVOT Vmax0.5 m/s AoV VTI0.2 mAo Mean GR1.9 mmHgLVOT VTI0.11 m KAYLEIGH (VMAX)2.0 cm2Al P1/2T877 msAVA (VTI) 2.0 cm2 Mitral Valve MV E Dusi084.7 cm/sDECEL Mupo503 msMR GXL212 cm2 MV A Vmax44.1 cm/sP 1/2 T43 ms E/A ratio2.6MVA (PHT)5.1 cm2 MR Max PG122 mmHgMR Mean PG84 mmHg TDI E/E' Xreqjr48.9E/E' Fdugols61.5 Pulmonary Valve PV Vmax0.7 m/sPV VTI0.15 mPV Mean GR1 mmHg PV Peak GR1.9 mmHgPI End Chrissie. Sebastian 1.8 cm/s Tricuspid Valve TR Vmax4.2 m/sRAP (EST) 15 cwZhQUPE80.3 mmHg TR Peak GR70.3 mmHg Left Ventricle Left ventricular cavity size is normal. Paradoxical septal motion with a flattened septum "D sign", c onsistent with RV pressure/volume overload. There is normal left ventricular wall thickness. LVEF is 40%. No left ventricle thrombus noted on this study. Right Ventricle The right ventricle is moderately dilated. Right ventricular systolic function is severely reduced. Atria The left atrium is moderately dilated. Possible PFO is noted. The right atrium is severely dilated. Aortic Valve Aortic valve is trileaflet. Aortic valve leaflets are sclerotic but open well. Trace to mild aortic r egurgitation. There is no aortic valvular stenosis. Mitral Valve The mitral valve is mildly thickened. Mitral annular calcification is mild. Mitral regurgitation is m oderate. There is no mitral valve stenosis. Tricuspid Valve The tricuspid valve leaflets appear normal. There is moderate to severe tricuspid regurgitation. Righ t ventricular systolic pressure is estimated at greater than 60 mmHg. Pulmonic Valve Pulmonic valve leaflets are sclerotic but open well. There is mild to moderate valvular regurgitation . Great Vessels The aortic root is normal in size. IVC is dilated and collapses <50% with inspiration. Pericardium Trace/Trivial pericardial effusion. Conclusion Left ventricular cavity size is normal. Paradoxical septal motion with a flattened septum "D sign", consistent with RV pressure/volume overlo ad. The right ventricle is moderately dilated. Right ventricular systolic function is severely reduced. The left atrium is moderately dilated. The right atrium is severely dilated. Possible PFO is noted. Aortic valve is trileaflet. Aortic valve leaflets are sclerotic but open well. Trace to mild aortic regurgitation. The mitral valve is mildly thickened. Mitral annular calcification is mild. Mitral regurgitation is moderate. There is no mitral valve stenosis. There is moderate to severe tricuspid regurgitation. Right ventricular systolic pressure is estimated at greater than 60 mmHg. There is mild to moderate valvular regurgitation. The aortic root is normal in size. IVC is dilated and collapses <50% with inspiration. Trace/Trivial pericardial effusion.
== END | disposition home or self-care (01) ==
LOC: SHCH 10:40
PROVIDERS: ATTEND Internal Medicine Cardiovascular Disease
DX: I08.8 Other rheumatic multiple valve diseases (principal); R06.00 Dyspnea, unspecified; R60.9 Edema, unspecified
CPT/HCPCS: 93306